=== PATIENT | female | born 1990 | race African-American/Black ===

== ENCOUNTER 2017-08-17 08:24 | Emergency (ER) | payer SELFPAY ==
[2017-08-17 08:29] VITALS: BP 129/69; PULSE 94; RESP 12; TEMP 97.7; O2SAT 97
--- NOTE | 2017-08-17 08:56 | PD ---
HPI Chief Complaint: Cold / Flu Symptoms Time Seen by Provider: 08:41 Travel History International Travel<30 days: No Contact w/Intl Traveler<30days: No Traveled to known affect area: No History of Present Illness HPI 27-year-old female presents to emergency departments with runny nose and cough for 2 days. Patient states that she has had sick contacts at work. States that she has used [place] [id number] without significant relief which is why she is here today. Patient states she has a productive cough with yellow mucus, mild sore throat. Patient denies fever, chills, chest pain, short of breath, nausea, vomiting, diarrhea. Denies any other issues today. Denies chronic medical issues or chronic medication use. Patient does not have a primary care physician at this time and has not been evaluated for this problem before. PFSH Past Medical History Medical History: Denies Significant Hx Diminished Hearing: No Tetanus Vaccination: > 5 Years Influenza Vaccination: No ?: Not LMP: 08/03/17 : 0 Para: 0 Past Surgical History Surgical History: No Previous Surgery Social History Alcohol Use: No Tobacco Use: Yes (1O CIGARRETTES PER DAY) Substance Use: No Allergies-Medications (Allergen,Severity, Reaction): Coded Allergies: No Known Allergies (Unverified , 08/17/17) Review of Systems Except as stated in HPI: all other systems reviewed are Neg Physical Exam Narrative GENERAL: Well-developed well-nourished in no apparent distress SKIN: Focused skin assessment warm/dry. HEAD: Atraumatic. Normocephalic. EYES: Pupils equal and round. No scleral icterus. No injection or drainage. ENT: No nasal bleeding or discharge. Mucous membranes pink and moist. Mild cobblestoning posterior pharynx without pharyngeal injection or hypertrophy. NECK: Trachea midline. No JVD. No lymphadenopathy CARDIOVASCULAR: Regular rate and rhythm. No murmur appreciated. RESPIRATORY: No accessory muscle use. Clear to auscultation. Breath sounds equal bilaterally. GASTROINTESTINAL: Abdomen soft, non-tender, nondistended. Hepatic and splenic margins not palpable. MUSCULOSKELETAL: No obvious deformities. No clubbing. No cyanosis. No edema. No CVA tenderness NEUROLOGICAL: Awake and alert. No obvious cranial nerve deficits. Motor grossly within normal limits. Normal speech. PSYCHIATRIC: Appropriate mood and affect; insight and judgment normal. Data Data Last Documented VS Vital Signs Date Time Temp Pulse Resp B/P (MAP) Pulse Ox O2 Delivery O2 Flow Rate FiO2 08/17/17 09:10 97.8 78 16 102/77 (85) 99 08/17/17 08:37 Room Air Orders Orders Ibuprofen (Motrin) (08/17/17 09:00) Ed Discharge Order (08/17/17 08:56) MDM Medical Decision Making Medical Screen Exam Complete: Yes Emergency Medical Condition: Yes Differential Diagnosis common Cold, allergic rhinitis, viral syndrome Narrative Course 27-year-old female presents to emergency departments with runny nose and cough for 2 days. Patient states that she has had sick contacts at work. States that she has used [place] [id number] without significant relief which is why she is here today. Patient states she has a productive cough with yellow mucus, mild sore throat. Patient denies fever, chills, chest pain, short of breath, nausea, vomiting, diarrhea. Denies any other issues today. Denies chronic medical issues or chronic medication use. Patient does not have a primary care physician at this time and has not been evaluated for this problem before. Vital signs stable Physical exam findings consistent with a common cold Patient advised to use [id number] medications for her symptoms. Use salt water gargles for sore throat. Follow-up primary care physician within 2-3 days. Patient given his a health information. Return to the emergency department for worsening or persistent symptoms. Diagnosis Primary Impression: Common cold Referrals: [facility] Additional Instructions: Follow-up with her primary care physician within 2-3 days. Ensure you have a nutritious diet with plenty of fluid intake. Use salt water gargles for your sore throat. Continue [place] [id number] for your symptoms per package instructions. Disposition: 01 DISCHARGE HOME Condition: Stable Shanna Brennan Aug 17, 2017 08:56
[2017-08-17] MEDS ORDERED: IBUPROFEN 600 MG TAB PO ONE (09:00)
[2017-08-17 09:10] VITALS: BP 102/77; TEMP 97.8
== END 2017-08-17 09:13 | disposition home or self-care (01) ==
LOC: NEPD 08:24
DX: J00 Acute nasopharyngitis [common cold] (principal); F17.210 Nicotine dependence, cigarettes, uncomplicated
CPT/HCPCS: 99282